=== PATIENT | male | born 1970 | race Caucasian/White ===

== ENCOUNTER → 2021-08-12 | Outpatient (REF) | payer BC | LOC: M LAB REF 16:15 | PROVIDERS: ATTEND Internal Medicine | DX: R10.13 Epigastric pain (principal) ==

== ENCOUNTER 2023-04-10 08:24 | Day surgery (SDC) | payer BC ==
[~2023-04-10] VITALS: Ht 185.4 cm; Wt 102.1 kg
[~2023-04-10 08:24] MED LIST: NS 1,000 ML IV ONE; ONETAB9 PO; ROSU5TAB5 PO; propofoL 200 MG/20 ML VIAL As Ordered ONE
[2023-04-10] MEDS ORDERED: propofoL 200 MG/20 ML VIAL As Ordered ONE (10:28)
[2023-04-10 10:37] VITALS: BP 115/70; O2SAT 93
== END 2023-04-10 11:05 | disposition home or self-care (01) ==
LOC: M OPP 08:24
PROVIDERS: ATTEND Internal Medicine Gastroenterology
DX: Z12.11 Encounter for screening for malignant neoplasm of colon (principal); K64.0 First degree hemorrhoids; Z79.02 Long term (current) use of antithrombotics/antiplatelets

== ENCOUNTER → 2024-08-23 | Outpatient (REF) | payer BC ==
[~2024-08-23] MED LIST changes: -NS 1,000 ML IV ONE; +ROSU5TAB49 PO; -ROSU5TAB5 PO; -propofoL 200 MG/20 ML VIAL As Ordered ONE
== END ==
LOC: M LAB REF 12:35
PROVIDERS: ATTEND Internal Medicine
DX: Z82.49 Family history of ischemic heart disease and other diseases of the circulatory system (principal)

== ENCOUNTER 2025-05-31 20:22 | Emergency (ER) | payer BC ==
[~2025-05-31] VITALS: Ht 185.4 cm; Wt 103.6 kg
[2025-05-31 20:29] VITALS: TEMP 98.1
[2025-05-31] MEDS: CYCLOBENZAPRINE 10 MG TABLET PO ONE (20:41)
[2025-05-31] MEDS ORDERED: ISOVUE-370 76% 100 ML VIAL As Ordered ONE (20:50)
[2025-05-31 20:54] LABS: BASO # 0.1 10^3/uL (0.0-0.2); BASO % 1.3 % (0.0-1.0); EOS # 0.2 10^3/uL (0.0-0.5); EOS % 1.9 % (0.0-3.0); LYMPH # 1.4 10^3/uL (1.5-5.0); LYMPH % 16.1 % (24.0-44.0); MONO # 0.8 10^3/uL (0.0-0.8); MONO % 8.7 % (2.0-8.0); NEUTROPHILS # 6.3 10^3/uL (1.5-8.5); NEUTROPHILS % 71.7 % (36.0-66.0); PLATELET COUNT, AUTOMATED 250 10^3/uL (150-450)
[2025-05-31 21:22] LABS: CALCIUM LEVEL 9.2 MG/DL (8.5-10.1); CARBON DIOXIDE LEVEL 26.0 MMOL/L (20-31); CHLORIDE LEVEL 104.0 MMOL/L (98-107); CREATININE FOR GFR 1.15 MG/DL (0.70-1.30); GLOMERULAR FILTRATION RATE 74.7 (>56); POTASSIUM SERUM 4.1 MMOL/L (3.5-5.1); SODIUM LEVEL 141.0 MMOL/L (136-145)
[2025-05-31] MEDS: MORPHINE 4 MG/ML 1 ML VIAL IV ONE (23:08)
[2025-05-31] MEDS ORDERED: PERC5TAB12 PO (23:22)
[2025-05-31 23:30] VITALS: BP 141/74
[2025-05-31] MEDS: OXYCODONE/APAP 5MG/325MG(HOME DOSE PACK) PO ONE (23:31)
[2025-05-31 23:33] VITALS: O2SAT 94
== END 2025-05-31 23:54 | disposition home or self-care (01) ==
LOC: M ED 20:22
DX: S22.42XA Multiple fractures of ribs, left side, initial encounter for closed fracture (principal); S27.321A Contusion of lung, unilateral, initial encounter; Y92.019 Unspecified place in single-family (private) house as the place of occurrence of the external cause; Y93.9 Activity, unspecified; Y99.9 Unspecified external cause status; W17.89XA Other fall from one level to another, initial encounter; Z79.899 Other long term (current) drug therapy
CPT/HCPCS: 70450; 71260; 72125; 72128; 72131; 73552; 74177; 80047; 80048; 85025; 93041; 94760; 96374; 99285; Q9967